=== PATIENT | male | born 1955 | race Caucasian/White ===

== ENCOUNTER → 2017-07-30 | Outpatient (CLI) | payer BC ==
[2017-07-30 14:49] LABS: EOS # 0.2 (0.04-0.40); EOS % 1.8 % (0.0-4.0); HEMATOCRIT 45.5 % (42.0-52.0); HEMOGLOBIN 14.5 g/dL (13.5-18.0); LYMPH# 2.1 (1.50-4.00); MEAN CELL VOLUME 88 fl (78-100); MEAN CORPUSCULAR HEMOGLOBIN 28 pg (27-31); MEAN CORPUSCULAR HGB CONC 32 g/dL (33-37); MEAN PLATELET VOLUME 10.1 fl (7.4-10.4); MONO # 1.1 (0.20-0.80); NEU # 6.6 (1.40-6.50); PLATELET COUNT 260 K/mm3 (130-400); RED BLOOD COUNT 5.19 M/mm3 (4.20-5.60); RED CELL DISTRIBUTION WIDTH 14.2 % (11.5-14.5); WHITE BLOOD COUNT 10.1 K/mm3 (4.8-10.8)
[2017-07-30 15:01] LABS: ALBUMIN 4.1 g/dL (3.5-5.0); BUN/CREATININE RATIO 22.8 (6.0-26.0); CALCIUM 9.1 mg/dL (8.4-10.2); POTASSIUM 4.2 mmol/L (3.6-5.0); TOTAL BILIRUBIN 0.4 mg/dL (0.2-1.3)
[2017-07-30 16:00] LABS: ERYTHROCYTE SEDIMENTATION RATE 3 mm/hr (0-20)
== END ==
LOC: RAD 14:09
PROVIDERS: Internal Medicine
DX: R06.02 Shortness of breath (principal)

== ENCOUNTER → 2017-08-29 | Outpatient (CLI) | payer BC ==
[2017-08-29 09:15] LABS: ALBUMIN 3.9 g/dL (3.5-5.0); BUN/CREATININE RATIO 33.5 (6.0-26.0); CALCIUM 8.6 mg/dL (8.4-10.2); POTASSIUM 4.5 mmol/L (3.6-5.0); TOTAL BILIRUBIN 0.5 mg/dL (0.2-1.3); TOTAL PROTEIN 6.5 g/dL (6.3-8.2)
== END ==
LOC: RAD 08:29
PROVIDERS: Internal Medicine
DX: Z01.818 Encounter for other preprocedural examination (principal); K44.9 Diaphragmatic hernia without obstruction or gangrene; J98.11 Atelectasis; E11.9 Type 2 diabetes mellitus without complications; I10 Essential (primary) hypertension
CPT/HCPCS: Q9967

== ENCOUNTER 2017-09-02 11:05 | Emergency (ER) | payer BC ==
[~2017-09-02] VITALS: Wt 105.9 kg
[2017-09-02] MEDS ORDERED: METOPROLOL SUCC25 M1 PO (11:14)
[2017-09-02] MEDS ORDERED: AMLODIPINE BESYL5 MG PO (11:14)
[2017-09-02] MEDS ORDERED: LISINOPRIL40 MG PO (11:14)
[2017-09-02] MEDS ORDERED: TORSEMIDE10 M1 PO (11:14)
[2017-09-02] MEDS ORDERED: IPRATROPIUM BROM3 M1 IH (11:14)
[2017-09-02] MEDS ORDERED: SYMBICORT1 AE3 IH (11:14)
[2017-09-02] MEDS ORDERED: DESYREL 100MG100 MG PO (11:14)
[2017-09-02] MEDS ORDERED: LEVITRA20 M1 PO (11:15)
[2017-09-02] MEDS ORDERED: ATORVASTATIN CA20 MG PO (11:15)
[2017-09-02 11:34] LABS: EOS % 0.1 % (0.0-4.0); HEMATOCRIT 41.3 % (42.0-52.0); HEMOGLOBIN 13.3 g/dL (13.5-18.0); LYMPH# 1.4 (1.50-4.00); MEAN CELL VOLUME 87 fl (78-100); MEAN CORPUSCULAR HEMOGLOBIN 28 pg (27-31); MEAN CORPUSCULAR HGB CONC 32 g/dL (33-37); MEAN PLATELET VOLUME 9.7 fl (7.4-10.4); MONO # 0.9 (0.20-0.80); NEU # 7.3 (1.40-6.50); PLATELET COUNT 191 K/mm3 (130-400); RED BLOOD COUNT 4.76 M/mm3 (4.20-5.60); RED CELL DISTRIBUTION WIDTH 15.1 % (11.5-14.5); WHITE BLOOD COUNT 9.8 K/mm3 (4.8-10.8)
[2017-09-02 11:47] LABS: ALBUMIN 3.7 g/dL (3.5-5.0); BUN/CREATININE RATIO 24.4 (6.0-26.0); CALCIUM 8.3 mg/dL (8.4-10.2); POTASSIUM 4.3 mmol/L (3.6-5.0); TOTAL BILIRUBIN 0.4 mg/dL (0.2-1.3); TOTAL PROTEIN 6.5 g/dL (6.3-8.2)
[2017-09-02 12:09] LABS: CKMB ISOENZYME 4.1 ng/mL (0.6-3.5); TROPONIN-I < 0.03 ng/mL (0.00-0.06)
[2017-09-02] MEDS ORDERED: PREDNISONE20 M1 (12:58)
[2017-09-02] MEDS ORDERED: LASIX20 M1 PO (13:07)
[2017-09-02 13:14] VITALS: BP 179/105
== END 2017-09-02 13:12 | disposition home or self-care (01) ==
LOC: ED 11:05
PROVIDERS: Nurse Practitioner Primary Care
DX: R06.02 Shortness of breath (principal); K44.9 Diaphragmatic hernia without obstruction or gangrene; I10 Essential (primary) hypertension; E78.5 Hyperlipidemia, unspecified; J45.909 Unspecified asthma, uncomplicated; T50.1X6A Underdosing of loop [high-ceiling] diuretics, initial encounter; Z91.14 Patient's other noncompliance with medication regimen

== ENCOUNTER 2017-09-15 16:40 | Observation (INO) | payer BC ==
[~2017-09-15] VITALS: Ht 165.1 cm; Wt 107.8 kg
[~2017-09-15 16:40] MED LIST: AMLODIPINE BESYL5 MG PO; ATORVASTATIN CA20 MG PO; DESYREL 100MG100 MG PO; IPRATROPIUM BROM3 M1 IH; LASIX20 M1 PO; LEVITRA20 M1 PO; LISINOPRIL40 MG PO; METOPROLOL SUCC25 M1 PO; PREDNISONE20 M1; SYMBICORT1 AE3 IH; TORSEMIDE10 M1 PO
[2017-09-15 17:28] LABS: HEMOGLOBIN 13.6 g/dL (13.5-18.0); MEAN CELL VOLUME 87 fl (78-100); MEAN CORPUSCULAR HEMOGLOBIN 28 pg (27-31); MEAN CORPUSCULAR HGB CONC 32 g/dL (33-37); MEAN PLATELET VOLUME 10.6 fl (7.4-10.4); PLATELET COUNT 238 K/mm3 (130-400); RED BLOOD COUNT 4.85 M/mm3 (4.20-5.60); RED CELL DISTRIBUTION WIDTH 15.3 % (11.5-14.5); WHITE BLOOD COUNT 8.4 K/mm3 (4.8-10.8)
[2017-09-15 17:38] LABS: BUN/CREATININE RATIO 30.6 (6.0-26.0); CALCIUM 9.1 mg/dL (8.4-10.2); POTASSIUM 4.5 mmol/L (3.6-5.0)
[2017-09-15 18:10] LABS: LYMPHOCYTE 21 % (20-51); MONOCYTE 12 % (3-10); NEUTROPHILS 65 % (42-75)
[2017-09-15 20:55] VITALS: BP 121/69
[2017-09-15] MEDS ORDERED: ATORVASTATIN CA40 MG PO (21:01)
--- NOTE | 2017-09-15 22:18 | NUR ---
Scheduled HS medications given. Refuses atorvastatin. States he takes it in the mornings. Dr. Alford aware. Did not bring own Duoneb from home. Used house medications.
[2017-09-15 23:16] VITALS: BP 106/59
[2017-09-16 03:15] VITALS: BP 97/67
[2017-09-16 06:24] VITALS: BP 107/72
--- NOTE | 2017-09-16 07:35 | NUR ---
Humberto Santos APRN at bedside.
[2017-09-16 09:14] LABS: ALBUMIN 3.8 g/dL (3.5-5.0); BUN/CREATININE RATIO 23.6 (6.0-26.0); CALCIUM 8.7 mg/dL (8.4-10.2); POTASSIUM 4.3 mmol/L (3.6-5.0); TOTAL BILIRUBIN 0.8 mg/dL (0.2-1.3); TOTAL PROTEIN 6.5 g/dL (6.3-8.2)
[2017-09-16 09:19] LABS: CKMB ISOENZYME 3.5 ng/mL (0.6-3.5)
[2017-09-16 09:23] LABS: TROPONIN-I 0.03 ng/mL (0.00-0.06)
[2017-09-16 09:30] LABS: EOS # 0.1 (0.04-0.40); EOS % 1.4 % (0.0-4.0); HEMATOCRIT 41.4 % (42.0-52.0); HEMOGLOBIN 13.3 g/dL (13.5-18.0); LYMPH# 1.8 (1.50-4.00); MEAN CELL VOLUME 87 fl (78-100); MEAN CORPUSCULAR HEMOGLOBIN 28 pg (27-31); MEAN CORPUSCULAR HGB CONC 32 g/dL (33-37); MEAN PLATELET VOLUME 10.6 fl (7.4-10.4); MONO # 0.9 (0.20-0.80); NEU # 4.8 (1.40-6.50); PLATELET COUNT 209 K/mm3 (130-400); RED BLOOD COUNT 4.77 M/mm3 (4.20-5.60); RED CELL DISTRIBUTION WIDTH 15.2 % (11.5-14.5); WHITE BLOOD COUNT 7.6 K/mm3 (4.8-10.8)
[2017-09-16 11:02] VITALS: BP 123/79
--- NOTE | 2017-09-16 11:41 | NUR ---
Report called to ETHAN Robledo at [facility]. ETHAN Robledo, aware of delay in transfer due to EMS availability. Will call back with patient departure time. Humberto Santos APRN updated patient and significant other. No questions at this time.
[2017-09-16 12:55] VITALS: BP 123/79
--- NOTE | 2017-09-16 13:20 | NUR ---
Patient alert and oriented. Denies pain. States headache has resolved. Continues to have shortness of breath at rest and with exertion. Transferred to [facility]. EMS arrives and report given. Cardizem drip infusing through IV to right forearm at 10mg/hr, with NS @ TKO. INT to left AC intact. Patient out of facility via stretcher. Patient becomes anxious immediately after being placed in EMS truck. States "guys, I can't do tight places, I'm claustrophobic." Patient begins panicking, and pulling on straps securing him to the stretcher. EMS crew removes patient from the truck. Patient remains on the stretcher. Verbal orders received from Humberto Santos APRN, to give 0.5mg ativan IV. Patient taken back to room 203 via stretcher. IV ativan administered. Patient appears less anxious after standing up from the stretcher. EMS calls different crew with larger truck from [place] to transport patient. Humberto Santos APRN is present and aware of delay. Patient's significant other also updated.
--- NOTE | 2017-09-16 13:32 | NUR ---
Larger EMS truck arrives, patient report given to crew. Patient remains alert and oriented, and denies pain. Out of facility via wheelchair to EMS. Ambulates to EMS truck. Steady gait noted. Cardizem drip infusing through IV to right forearm at 10mg/hour, and NS infusing @ TKO. INT to left AC. Patient belongings and home medications sent with EMS.
== END 2017-09-16 13:32 | disposition short-term general hospital (02) ==
LOC: ED 16:40 → MED/SURG 19:18
PROVIDERS: Nurse Practitioner Primary Care; ADMIT Family Medicine
DX: I48.91 Unspecified atrial fibrillation (principal); R06.00 Dyspnea, unspecified; I10 Essential (primary) hypertension; K44.9 Diaphragmatic hernia without obstruction or gangrene; E66.01 Morbid (severe) obesity due to excess calories; Z68.38 Body mass index [BMI] 38.0-38.9, adult; J45.909 Unspecified asthma, uncomplicated; Z79.01 Long term (current) use of anticoagulants; Z79.899 Other long term (current) drug therapy; Z98.1 Arthrodesis status
CPT/HCPCS: G0378; J2060; J3490; J7030

== ENCOUNTER 2017-11-07 19:14 | Emergency (ER) | payer BC ==
[~2017-11-07 19:14] MED LIST changes: +ATORVASTATIN CA40 MG PO
[2017-11-07 20:11] LABS: HEMOGLOBIN 14.2 g/dL (13.5-18.0); MEAN CELL VOLUME 87 fl (78-100); MEAN CORPUSCULAR HEMOGLOBIN 28 pg (27-31); MEAN CORPUSCULAR HGB CONC 32 g/dL (33-37); MEAN PLATELET VOLUME 10.4 fl (7.4-10.4); PLATELET COUNT 228 K/mm3 (130-400); RED BLOOD COUNT 5.07 M/mm3 (4.20-5.60); RED CELL DISTRIBUTION WIDTH 14.5 % (11.5-14.5); WHITE BLOOD COUNT 9.3 K/mm3 (4.8-10.8)
[2017-11-07 20:31] LABS: ALBUMIN 4.3 g/dL (3.5-5.0); CALCIUM 9.1 mg/dL (8.4-10.2); POTASSIUM 4.3 mmol/L (3.6-5.0); TOTAL BILIRUBIN 0.5 mg/dL (0.2-1.3)
[2017-11-07 20:32] LABS: URINE APPEARANCE CLEAR; URINE COLOR YELLOW
[2017-11-07 20:33] LABS: PH-URINE 5.5 (5.0 - 8.0); URINE BILIRUBIN NEGATIVE (NEGATIVE); URINE BLOOD NEGATIVE (NEGATIVE); URINE GLUCOSE NEGATIVE (NEGATIVE); URINE KETONE NEGATIVE (NEGATIVE); URINE LEUKOCYTE ESTERASE NEGATIVE (NEGATIVE); URINE NITRATE NEGATIVE (NEGATIVE); URINE PROTEIN(semi-quant) NEGATIVE (NEGATIVE); URINE UROBILINOGEN NORMAL (NORMAL); URINE WBC 0-1 /hpf (0-3)
[2017-11-07 20:38] LABS: TROPONIN-I < 0.03 ng/mL (0.00-0.06)
[2017-11-07 20:54] LABS: LYMPHOCYTE 24 % (20-51); MONOCYTE 12 % (3-10); NEUTROPHILS 61 % (42-75)
[2017-11-07] MEDS ORDERED: PREDNISONE20 M1 PO (21:23)
[2017-11-07] MEDS ORDERED: ZITHROMAX 250M250 MG PO (21:23)
[2017-11-07] MEDS ORDERED: CARDIZEM CD120 M1 PO (21:34)
[2017-11-07] MEDS ORDERED: ELIQUIS5 MG PO (21:34)
[2017-11-07] MEDS ORDERED: MULTAQ400 M1 PO (21:34)
[2017-11-07] MEDS ORDERED: TUSSIONEX PENN115 ML PO (21:41)
[2017-11-07] MEDS ORDERED: TESSALON PERLE100 M1 PO (21:41)
[2017-11-07 21:52] VITALS: BP 122/86
== END 2017-11-07 21:52 | disposition home or self-care (01) ==
LOC: ED 19:14
PROVIDERS: Nurse Practitioner Family
DX: J45.901 Unspecified asthma with (acute) exacerbation (principal); J20.9 Acute bronchitis, unspecified; I48.91 Unspecified atrial fibrillation; Z79.01 Long term (current) use of anticoagulants; I10 Essential (primary) hypertension; K44.9 Diaphragmatic hernia without obstruction or gangrene; Z79.899 Other long term (current) drug therapy
CPT/HCPCS: J2930

== ENCOUNTER → 2017-12-19 | Outpatient (CLI) | payer BC ==
[~2017-12-19] MED LIST changes: +CARDIZEM CD120 M1 PO; +ELIQUIS5 MG PO; +MULTAQ400 M1 PO; +PREDNISONE20 M1 PO; +TESSALON PERLE100 M1 PO; +TUSSIONEX PENN115 ML PO; +ZITHROMAX 250M250 MG PO
[2017-12-19 09:15] LABS: HEMATOCRIT 33.5 % (42.0-52.0); HEMOGLOBIN 10.1 g/dL (13.5-18.0); MEAN CELL VOLUME 89 fl (78-100); MEAN CORPUSCULAR HEMOGLOBIN 27 pg (27-31); MEAN CORPUSCULAR HGB CONC 30 g/dL (33-37); MEAN PLATELET VOLUME 9.2 fl (7.4-10.4); RED BLOOD COUNT 3.76 M/mm3 (4.20-5.60); WHITE BLOOD COUNT 6.7 K/mm3 (4.8-10.8)
[2017-12-19 09:17] LABS: ALBUMIN 3.8 g/dL (3.5-5.0); CALCIUM 9.1 mg/dL (8.4-10.2); POTASSIUM 4.4 mmol/L (3.6-5.0); TOTAL BILIRUBIN 0.4 mg/dL (0.2-1.3); TOTAL PROTEIN 6.5 g/dL (6.3-8.2)
[2017-12-19 09:26] LABS: PLATELET COUNT 514 K/mm3 (130-400)
[2017-12-19 09:27] LABS: LYMPHOCYTE 28 % (20-51); MONOCYTE 15 % (3-10); NEUTROPHILS 55 % (42-75); OVALOCYTES 1+
[2017-12-19 09:28] LABS: POLYCHROMASIA 1+
== END ==
LOC: LAB 08:34
PROVIDERS: Internal Medicine
DX: I48.91 Unspecified atrial fibrillation (principal); I10 Essential (primary) hypertension

== ENCOUNTER → 2017-12-31 | Outpatient (CLI) | payer BC ==
[2017-12-31 11:07] LABS: HEMATOCRIT 38.7 % (42.0-52.0); HEMOGLOBIN 11.7 g/dL (13.5-18.0); MEAN CELL VOLUME 87 fl (78-100); MEAN CORPUSCULAR HEMOGLOBIN 26 pg (27-31); MEAN CORPUSCULAR HGB CONC 30 g/dL (33-37); MEAN PLATELET VOLUME 10.1 fl (7.4-10.4); PLATELET COUNT 296 K/mm3 (130-400); RED BLOOD COUNT 4.47 M/mm3 (4.20-5.60); RED CELL DISTRIBUTION WIDTH 15.2 % (11.5-14.5); WHITE BLOOD COUNT 8.3 K/mm3 (4.8-10.8)
[2017-12-31 11:14] LABS: ALBUMIN 4.1 g/dL (3.5-5.0); CALCIUM 9.4 mg/dL (8.4-10.2); POTASSIUM 4.8 mmol/L (3.6-5.0); TOTAL BILIRUBIN 0.6 mg/dL (0.2-1.3); TOTAL PROTEIN 6.7 g/dL (6.3-8.2)
[2017-12-31 11:36] LABS: LYMPHOCYTE 20 % (20-51); MONOCYTE 11 % (3-10); NEUTROPHILS 65 % (42-75)
== END ==
LOC: LAB 10:28
PROVIDERS: Internal Medicine
DX: I48.91 Unspecified atrial fibrillation (principal); I10 Essential (primary) hypertension

== ENCOUNTER → 2018-01-13 | Outpatient (CLI) | payer BC | LOC: RAD 10:39 | DX: M79.662 Pain in left lower leg (principal); M79.661 Pain in right lower leg; R60.0 Localized edema ==

== ENCOUNTER → 2018-02-26 | Outpatient (CLI) | payer BC | LOC: RAD 10:01 | DX: M19.031 Primary osteoarthritis, right wrist (principal) ==

== ENCOUNTER → 2018-04-22 | Outpatient (CLI) | payer BC | LOC: RAD 12:56 | DX: M19.072 Primary osteoarthritis, left ankle and foot (principal) ==

== ENCOUNTER → 2018-04-29 | Outpatient (CLI) | payer BC | LOC: LAB 15:15 | DX: E11.9 Type 2 diabetes mellitus without complications (principal); M79.675 Pain in left toe(s) ==

== ENCOUNTER → 2018-05-01 | Outpatient (CLI) | payer BC | LOC: CARDREHAB 13:35 | DX: G47.33 Obstructive sleep apnea (adult) (pediatric) (principal) | CPT/HCPCS: G0399 ==

== ENCOUNTER → 2019-03-19 | Outpatient (CLI) | payer BC ==
[2019-03-19 11:47] LABS: HEMOGLOBIN 14.3 g/dL (13.5-18.0); MEAN CELL VOLUME 83 fl (78-100); MEAN CORPUSCULAR HEMOGLOBIN 26 pg (27-31); MEAN CORPUSCULAR HGB CONC 32 g/dL (33-37); MEAN PLATELET VOLUME 10.5 fl (7.4-10.4); PLATELET COUNT 234 K/mm3 (130-400); RED BLOOD COUNT 5.43 M/mm3 (4.20-5.60); RED CELL DISTRIBUTION WIDTH 14.7 % (11.5-14.5); WHITE BLOOD COUNT 7.7 K/mm3 (4.8-10.8)
[2019-03-19 11:57] LABS: ALBUMIN 4.3 g/dL (3.4-4.8); POTASSIUM 4.7 mmol/L (3.5-5.1)
[2019-03-19 11:58] LABS: CALCIUM 9.4 mg/dL (8.3-10.5)
[2019-03-19 12:00] LABS: TOTAL PROTEIN 7.1 g/dL (6.2-8.1)
[2019-03-19 12:01] LABS: TOTAL BILIRUBIN 0.4 mg/dL (0.2-1.2)
[2019-03-19 12:05] LABS: BAND 1 % (0-10); LYMPHOCYTE 19 % (20-51); MONOCYTE 8 % (3-10); NEUTROPHILS 61 % (42-75)
[2019-03-19 12:15] LABS: PH-URINE 5.5 (5.0 - 8.0); URINE APPEARANCE CLEAR; URINE BILIRUBIN NEGATIVE (NEGATIVE); URINE BLOOD NEGATIVE (NEGATIVE); URINE COLOR YELLOW; URINE GLUCOSE NEGATIVE (NEGATIVE); URINE KETONE NEGATIVE (NEGATIVE); URINE LEUKOCYTE ESTERASE NEGATIVE (NEGATIVE); URINE NITRATE NEGATIVE (NEGATIVE); URINE PROTEIN(semi-quant) NEGATIVE (NEGATIVE); URINE UROBILINOGEN NORMAL (NORMAL)
== END ==
LOC: RAD 11:24
PROVIDERS: Family Medicine
DX: R10.11 Right upper quadrant pain (principal); R61 Generalized hyperhidrosis

== ENCOUNTER 2019-03-29 11:35 | Emergency (ER) | payer BC ==
[~2019-03-29] VITALS: Wt 119.6 kg
[~2019-03-29 11:35] MED LIST changes: -ATORVASTATIN CA40 MG PO
[2019-03-29 12:17] LABS: HEMATOCRIT 43.5 % (42.0-52.0); HEMOGLOBIN 13.7 g/dL (13.5-18.0); MEAN CELL VOLUME 84 fl (78-100); MEAN CORPUSCULAR HEMOGLOBIN 26 pg (27-31); MEAN CORPUSCULAR HGB CONC 32 g/dL (33-37); MEAN PLATELET VOLUME 10.6 fl (7.4-10.4); PLATELET COUNT 217 K/mm3 (130-400); RED BLOOD COUNT 5.21 M/mm3 (4.20-5.60); RED CELL DISTRIBUTION WIDTH 14.8 % (11.5-14.5); WHITE BLOOD COUNT 5.7 K/mm3 (4.8-10.8)
[2019-03-29 12:27] LABS: LYMPHOCYTE 25 % (20-51); MONOCYTE 18 % (3-10); NEUTROPHILS 54 % (42-75); POTASSIUM 4.7 mmol/L (3.5-5.1)
[2019-03-29 12:28] LABS: CALCIUM 9.1 mg/dL (8.3-10.5)
[2019-03-29 12:29] LABS: TOTAL PROTEIN 6.5 g/dL (6.2-8.1)
[2019-03-29 12:31] LABS: TOTAL BILIRUBIN 0.3 mg/dL (0.2-1.2)
[2019-03-29] MEDS ORDERED: IPRATROPIUM BROM3 M1 IH (13:26)
[2019-03-29] MEDS ORDERED: PREDNISONE20 M1 PO (13:26)
[2019-03-29] MEDS ORDERED: VIBRAMYCIN HYC100 MG PO (13:26)
[2019-03-29] MEDS ORDERED: GUAIFEN-CODEINE5 ML PO (13:26)
[2019-03-29 13:44] VITALS: BP 127/69
[2019-03-29] MEDS ORDERED: FUROSEMIDE20 MG PO (15:15)
[2019-03-29] MEDS ORDERED: MULTAQ400 M1 PO (15:17)
== END 2019-03-29 13:46 | disposition home or self-care (01) ==
LOC: ED 11:35
PROVIDERS: Family Medicine
DX: J44.1 Chronic obstructive pulmonary disease with (acute) exacerbation (principal); I10 Essential (primary) hypertension; E78.5 Hyperlipidemia, unspecified; G47.30 Sleep apnea, unspecified; E66.01 Morbid (severe) obesity due to excess calories; Z87.891 Personal history of nicotine dependence

== ENCOUNTER → 2019-04-02 | Outpatient (CLI) | payer BC ==
[2019-03-29 13:44] VITALS: BP 127/69
[~2019-04-02] MED LIST changes: +FUROSEMIDE20 MG PO; +GUAIFEN-CODEINE5 ML PO; +VIBRAMYCIN HYC100 MG PO
[2019-04-02 12:44] LABS: BASO # 0.1 (0.02-0.10); EOS # 0.2 (0.04-0.40); EOS % 2.3 % (0.0-4.0); HEMATOCRIT 44.3 % (42.0-52.0); HEMOGLOBIN 13.9 g/dL (13.5-18.0); MEAN CELL VOLUME 83 fl (78-100); MEAN CORPUSCULAR HEMOGLOBIN 26 pg (27-31); MEAN CORPUSCULAR HGB CONC 31 g/dL (33-37); MEAN PLATELET VOLUME 10.4 fl (7.4-10.4); MONO # 0.9 (0.20-0.80); NEU # 5.2 (1.40-6.50); PLATELET COUNT 250 K/mm3 (130-400); RED BLOOD COUNT 5.33 M/mm3 (4.20-5.60); RED CELL DISTRIBUTION WIDTH 14.9 % (11.5-14.5); WHITE BLOOD COUNT 8.4 K/mm3 (4.8-10.8)
[2019-04-02 12:53] LABS: ALBUMIN 4.2 g/dL (3.4-4.8); POTASSIUM 4.5 mmol/L (3.5-5.1)
[2019-04-02 12:54] LABS: CALCIUM 9.5 mg/dL (8.3-10.5)
[2019-04-02 12:56] LABS: PROTHROMBIN TIME 10.4 SECONDS (9.0-12.0); TOTAL PROTEIN 6.7 g/dL (6.2-8.1)
[2019-04-02 12:57] LABS: TOTAL BILIRUBIN 0.4 mg/dL (0.2-1.2)
[2019-04-02 13:02] LABS: MAGNESIUM 1.8 mg/dL (1.60-2.60)
[2019-04-02 13:18] LABS: URINE APPEARANCE CLEAR; URINE COLOR YELLOW
[2019-04-02 13:19] LABS: URINE BILIRUBIN NEGATIVE (NEGATIVE); URINE BLOOD NEGATIVE (NEGATIVE); URINE GLUCOSE NEGATIVE (NEGATIVE); URINE KETONE NEGATIVE (NEGATIVE); URINE LEUKOCYTE ESTERASE NEGATIVE (NEGATIVE); URINE NITRATE NEGATIVE (NEGATIVE); URINE PROTEIN(semi-quant) TRACE mg/dL (NEGATIVE); URINE UROBILINOGEN NORMAL (NORMAL)
== END ==
LOC: LAB 12:27
PROVIDERS: Internal Medicine
DX: Z01.818 Encounter for other preprocedural examination (principal); K81.1 Chronic cholecystitis

== ENCOUNTER → 2019-04-03 | Outpatient (CLI) | payer BC ==
[2019-03-29 13:44] VITALS: BP 127/69
== END ==
LOC: CARDREHAB 07:59 → AMSURD 10:28
DX: Z01.818 Encounter for other preprocedural examination (principal); K81.1 Chronic cholecystitis
CPT/HCPCS: A9500

== ENCOUNTER 2019-06-04 15:18 | Emergency (ER) | payer BC ==
[~2019-06-04] VITALS: Wt 118.2 kg
[2019-06-04 16:47] LABS: HEMATOCRIT 39.8 % (42.0-52.0); HEMOGLOBIN 12.5 g/dL (13.5-18.0); MEAN CELL VOLUME 86 fl (78-100); MEAN CORPUSCULAR HEMOGLOBIN 27 pg (27-31); MEAN CORPUSCULAR HGB CONC 31 g/dL (33-37); MEAN PLATELET VOLUME 10.3 fl (7.4-10.4); PLATELET COUNT 197 K/mm3 (130-400); RED BLOOD COUNT 4.64 M/mm3 (4.20-5.60); RED CELL DISTRIBUTION WIDTH 15.7 % (11.5-14.5)
[2019-06-04 16:55] LABS: ALBUMIN 3.9 g/dL (3.4-4.8); POTASSIUM 4.1 mmol/L (3.5-5.1); SODIUM 138 mmol/L (136-145)
[2019-06-04 16:56] LABS: CALCIUM 8.5 mg/dL (8.3-10.5)
[2019-06-04 16:57] LABS: GLUCOSE 104 mg/dL (75-110); TOTAL PROTEIN 6.2 g/dL (6.2-8.1)
[2019-06-04 16:58] LABS: CARBON DIOXIDE 21 mmol/L (23-31)
[2019-06-04 16:59] LABS: TOTAL BILIRUBIN 0.3 mg/dL (0.2-1.2)
[2019-06-04 17:03] LABS: AST-SGOT 37 U/L (5-34)
[2019-06-04 17:04] LABS: ALT/SGPT 160 U/L (0-55)
[2019-06-04 17:09] LABS: D-DIMER 0.46 mg/L FEU (0.15-0.50)
[2019-06-04 17:25] LABS: LYMPHOCYTE 17 % (20-51); MONOCYTE 6 % (3-10); NEUTROPHILS 75 % (42-75)
[2019-06-04 17:33] LABS: TROPONIN-I < 0.03 ng/mL (<0.030)
[2019-06-04] MEDS ORDERED: ZITHROMAX 250M250 MG PO (19:22)
[2019-06-04] MEDS ORDERED: PREDNISONE20 MG PO (19:22)
[2019-06-04] MEDS ORDERED: IPRATROPIUM BROM3 M1 IH (19:29)
[2019-06-04 19:44] VITALS: BP 160/95
== END 2019-06-04 19:58 | disposition home or self-care (01) ==
LOC: ED 15:18
PROVIDERS: Nurse Practitioner Family
DX: J20.9 Acute bronchitis, unspecified (principal); I48.91 Unspecified atrial fibrillation; E11.9 Type 2 diabetes mellitus without complications; I11.0 Hypertensive heart disease with heart failure; I50.9 Heart failure, unspecified; J45.909 Unspecified asthma, uncomplicated; E78.5 Hyperlipidemia, unspecified; G47.33 Obstructive sleep apnea (adult) (pediatric); M54.9 Dorsalgia, unspecified; G89.29 Other chronic pain; Z79.01 Long term (current) use of anticoagulants; Z87.891 Personal history of nicotine dependence
CPT/HCPCS: J2930; J7030

== ENCOUNTER → 2019-12-28 | Outpatient (CLI) | payer BC ==
[~2019-12-28] MED LIST changes: +PREDNISONE20 MG PO
[2019-12-28 15:17] LABS: POTASSIUM 4.2 mmol/L (3.5-5.1)
[2019-12-28 15:18] LABS: CALCIUM 9.3 mg/dL (8.3-10.5)
== END ==
LOC: LAB 14:49
PROVIDERS: Internal Medicine
DX: N40.0 Benign prostatic hyperplasia without lower urinary tract symptoms (principal); Z98.890 Other specified postprocedural states
CPT/HCPCS: Q9967

== ENCOUNTER → 2020-01-11 | Day surgery (SDC) | payer MEDICARE, BC | LOC: MSO 10:36 | DX: L82.1 Other seborrheic keratosis (principal); Z79.01 Long term (current) use of anticoagulants ==

== ENCOUNTER → 2020-01-25 | Outpatient (CLI) | payer MEDICARE, BC ==
[2020-01-25 12:10] LABS: ALBUMIN 4.4 g/dL (3.4-4.8)
[2020-01-25 12:11] LABS: POTASSIUM 4.4 mmol/L (3.5-5.1)
[2020-01-25 12:12] LABS: CALCIUM 9.5 mg/dL (8.3-10.5)
[2020-01-25 12:13] LABS: TOTAL PROTEIN 7.3 g/dL (6.2-8.1)
[2020-01-25 12:15] LABS: TOTAL BILIRUBIN 0.5 mg/dL (0.2-1.2)
[2020-01-25 12:19] LABS: MAGNESIUM 2.15 mg/dL (1.60-2.60)
[2020-01-25 12:40] LABS: URINE APPEARANCE CLEAR; URINE COLOR YELLOW
[2020-01-25 12:41] LABS: PH-URINE 7.5 (5.0 - 8.0); URINE BILIRUBIN NEGATIVE (NEGATIVE); URINE BLOOD NEGATIVE (NEGATIVE); URINE GLUCOSE NEGATIVE (NEGATIVE); URINE KETONE NEGATIVE (NEGATIVE); URINE LEUKOCYTE ESTERASE NEGATIVE (NEGATIVE); URINE MUCUS PRESENT (NOT PRESENT); URINE NITRATE NEGATIVE (NEGATIVE); URINE PROTEIN(semi-quant) TRACE mg/dL (NEGATIVE); URINE UROBILINOGEN NORMAL (NORMAL); URINE WBC 0-1 /hpf (0-3)
== END ==
LOC: LAB 11:32
PROVIDERS: Internal Medicine
DX: Z00.00 Encounter for general adult medical examination without abnormal findings (principal); Z12.5 Encounter for screening for malignant neoplasm of prostate; Z12.11 Encounter for screening for malignant neoplasm of colon

== ENCOUNTER → 2020-05-19 | Outpatient (CLI) | payer MEDICARE ==
[~2020-05-19] MED LIST changes: +ALBUTEROL2.5 MG/3 M IH; +LEVOFLOXACIN750 MG PO
== END ==
LOC: LAB 15:24
DX: Z20.822 Contact with and (suspected) exposure to COVID-19 (principal)

== ENCOUNTER → 2020-06-13 | Outpatient (CLI) | payer MEDICARE | LOC: RAD 09:33 | DX: M17.12 Unilateral primary osteoarthritis, left knee (principal); S89.92XA Unspecified injury of left lower leg, initial encounter ==

== ENCOUNTER → 2020-07-26 | Outpatient (CLI) | payer MEDICARE ==
[2020-07-26 11:25] LABS: BASO # 0.05 (0.02-0.10); EOS # 0.26 (0.04-0.40); HEMOGLOBIN 14.6 g/dL (13.5-18.0); LYMPH# 1.93 (1.50-4.00); MEAN CELL VOLUME 83 fl (78-100); MEAN CORPUSCULAR HEMOGLOBIN 26 pg (27-31); MEAN CORPUSCULAR HGB CONC 32 g/dL (33-37); MEAN PLATELET VOLUME 9.9 fl (7.4-10.4); MONO # 0.86 (0.20-0.80); NEU # 5.42 (1.40-6.50); PLATELET COUNT 253 K/mm3 (130-400); RED BLOOD COUNT 5.53 M/mm3 (4.20-5.60); RED CELL DISTRIBUTION WIDTH 14.8 % (11.5-14.5); WHITE BLOOD COUNT 8.6 K/mm3 (4.8-10.8)
[2020-07-26 11:51] LABS: ALBUMIN 4.4 g/dL (3.4-4.8); POTASSIUM 4.6 mmol/L (3.5-5.1)
[2020-07-26 11:52] LABS: CALCIUM 9.2 mg/dL (8.3-10.5); PROTHROMBIN TIME 9.6 SECONDS (9.0-12.0)
[2020-07-26 11:55] LABS: TOTAL BILIRUBIN 0.4 mg/dL (0.2-1.2)
[2020-07-26 11:57] LABS: URINE APPEARANCE CLEAR; URINE BILIRUBIN NEGATIVE (NEGATIVE); URINE BLOOD NEGATIVE (NEGATIVE); URINE COLOR YELLOW; URINE GLUCOSE NEGATIVE (NEGATIVE); URINE KETONE NEGATIVE (NEGATIVE); URINE LEUKOCYTE ESTERASE NEGATIVE (NEGATIVE); URINE NITRATE NEGATIVE (NEGATIVE); URINE PROTEIN(semi-quant) NEGATIVE (NEGATIVE); URINE UROBILINOGEN NORMAL (NORMAL); URINE WBC 0-1 /hpf (0-3)
[2020-07-26 12:00] LABS: MAGNESIUM 1.99 mg/dL (1.60-2.60)
== END ==
LOC: AMSURD 11:10
PROVIDERS: Internal Medicine
DX: Z01.818 Encounter for other preprocedural examination (principal); Z98.1 Arthrodesis status

== ENCOUNTER → 2020-08-16 | Outpatient (CLI) | payer MEDICARE | LOC: RAD 14:59 | DX: M25.562 Pain in left knee (principal) ==

== ENCOUNTER 2020-09-06 09:07 | Outpatient (RCR) | payer OTHER ==
[~2020-09-06 09:07] MED LIST changes: -ALBUTEROL2.5 MG/3 M IH; -LEVOFLOXACIN750 MG PO
== END 2020-09-07 15:37 | disposition still patient (30) ==
LOC: OPPGERO 09:07
DX: F33.1 Major depressive disorder, recurrent, moderate (principal); F41.1 Generalized anxiety disorder; G47.33 Obstructive sleep apnea (adult) (pediatric); I10 Essential (primary) hypertension; J45.909 Unspecified asthma, uncomplicated; E66.9 Obesity, unspecified; F10.20 Alcohol dependence, uncomplicated; I48.91 Unspecified atrial fibrillation; F90.9 Attention-deficit hyperactivity disorder, unspecified type; Z96.652 Presence of left artificial knee joint; Z98.890 Other specified postprocedural states; Z98.1 Arthrodesis status; Z63.5 Disruption of family by separation and divorce; Z83.3 Family history of diabetes mellitus

== ENCOUNTER 2020-09-08 09:58 | Outpatient (RCR) | payer MEDICARE, OTHER | END 2020-10-07 22:30 | LOC: OPPGERO 09:58 | DX: F41.8 Other specified anxiety disorders (principal); I10 Essential (primary) hypertension; G47.33 Obstructive sleep apnea (adult) (pediatric); J45.909 Unspecified asthma, uncomplicated; E66.9 Obesity, unspecified; I48.91 Unspecified atrial fibrillation; F90.9 Attention-deficit hyperactivity disorder, unspecified type; Z79.899 Other long term (current) drug therapy ==

== ENCOUNTER → 2021-01-23 | Outpatient (CLI) | payer MEDICARE ==
[~2021-01-23] MED LIST changes: +ALBUTEROL2.5 MG/3 M IH; +LEVOFLOXACIN750 MG PO
[2021-01-23 14:42] LABS: BASO # 0.03 K/mm3 (0.02-0.10); EOS # 0.18 K/mm3 (0.04-0.40); EOS % 1.8 % (0.0-4.0); HEMATOCRIT 45.2 % (42.0-52.0); HEMOGLOBIN 14.4 g/dL (13.5-18.0); LYMPH# 1.94 K/mm3 (1.50-4.00); MEAN CELL VOLUME 85 fl (78-100); MEAN CORPUSCULAR HEMOGLOBIN 27 pg (27-31); MEAN CORPUSCULAR HGB CONC 32 g/dL (33-37); MEAN PLATELET VOLUME 9.8 fl (7.4-10.4); MONO # 1.04 K/mm3 (0.20-0.80); NEU # 6.83 K/mm3 (1.40-6.50); PLATELET COUNT 244 K/mm3 (130-400); RED BLOOD COUNT 5.35 M/mm3 (4.20-5.60); RED CELL DISTRIBUTION WIDTH 14.5 % (11.5-14.5); WHITE BLOOD COUNT 10.2 K/mm3 (4.8-10.8)
[2021-01-23 14:52] LABS: ALBUMIN 4.1 g/dL (3.4-4.8); POTASSIUM 4.1 mmol/L (3.5-5.1)
[2021-01-23 14:53] LABS: CALCIUM 9.1 mg/dL (8.3-10.5)
[2021-01-23 14:54] LABS: TOTAL PROTEIN 6.9 g/dL (6.2-8.1)
[2021-01-23 14:56] LABS: TOTAL BILIRUBIN 0.4 mg/dL (0.2-1.2)
[2021-01-23 15:00] LABS: D-DIMER 0.95 mg/L FEU (0.15-0.50)
== END ==
LOC: RAD 14:22
PROVIDERS: Nurse Practitioner
DX: R06.00 Dyspnea, unspecified (principal)

== ENCOUNTER → 2021-01-23 | Outpatient (CLI) | payer MEDICARE | LOC: LAB 15:44 | DX: R06.00 Dyspnea, unspecified (principal); R04.2 Hemoptysis; Z20.822 Contact with and (suspected) exposure to COVID-19 ==

== ENCOUNTER 2021-01-24 08:40 | Emergency (ER) | payer MEDICARE ==
[~2021-01-24] VITALS: Ht 165.1 cm; Wt 118.2 kg
[~2021-01-24 08:40] MED LIST changes: -ALBUTEROL2.5 MG/3 M IH; -LEVOFLOXACIN750 MG PO
[2021-01-24] MEDS ORDERED: VIBRAMYCIN HYC100 MG PO (08:55)
[2021-01-24] MEDS ORDERED: PREDNISONE20 M1 PO (08:56)
[2021-01-24] MEDS ORDERED: LEVOFLOXACIN750 MG PO (10:41)
[2021-01-24] MEDS ORDERED: ALBUTEROL2.5 MG/3 M IH (10:41)
[2021-01-24 10:56] VITALS: BP 143/82
== END 2021-01-24 10:56 | disposition home or self-care (01) ==
LOC: ED 08:40
DX: J18.9 Pneumonia, unspecified organism (principal); J45.909 Unspecified asthma, uncomplicated; I48.91 Unspecified atrial fibrillation; E66.9 Obesity, unspecified; Z79.01 Long term (current) use of anticoagulants; Z79.52 Long term (current) use of systemic steroids; Z68.41 Body mass index [BMI] 40.0-44.9, adult
CPT/HCPCS: J2060; Q9967

== ENCOUNTER → 2021-08-10 | Outpatient (CLI) | payer MEDICARE ==
[~2021-08-10] MED LIST changes: +ALBUTEROL2.5 MG/3 M IH; +LEVOFLOXACIN750 MG PO
[2021-08-10 14:40] LABS: BASO # 0.04 K/mm3 (0.02-0.10); EOS # 0.13 K/mm3 (0.04-0.40); HEMATOCRIT 41.7 % (42.0-52.0); HEMOGLOBIN 13.5 g/dL (13.5-18.0); LYMPH# 1.47 K/mm3 (1.50-4.00); MEAN CELL VOLUME 83 fl (78-100); MEAN CORPUSCULAR HEMOGLOBIN 27 pg (27-31); MEAN CORPUSCULAR HGB CONC 32 g/dL (33-37); MEAN PLATELET VOLUME 10.1 fl (7.4-10.4); MONO # 1.24 K/mm3 (0.20-0.80); NEU # 9.45 K/mm3 (1.40-6.50); PLATELET COUNT 204 K/mm3 (130-400); RED BLOOD COUNT 5.05 M/mm3 (4.20-5.60); RED CELL DISTRIBUTION WIDTH 14.4 % (11.5-14.5); WHITE BLOOD COUNT 12.4 K/mm3 (4.8-10.8)
[2021-08-10 14:51] LABS: ALBUMIN 4.1 g/dL (3.4-4.8); POTASSIUM 4.5 mmol/L (3.5-5.1)
[2021-08-10 14:52] LABS: CALCIUM 9.3 mg/dL (8.3-10.5)
[2021-08-10 14:53] LABS: TOTAL PROTEIN 6.8 g/dL (6.2-8.1)
[2021-08-10 14:55] LABS: TOTAL BILIRUBIN 0.4 mg/dL (0.2-1.2)
[2021-08-10 14:58] LABS: PROTHROMBIN TIME 10.1 SECONDS (9.0-12.0)
[2021-08-10 15:00] LABS: MAGNESIUM 1.83 mg/dL (1.60-2.60)
[2021-08-10 17:47] LABS: PH-URINE 5.5 (5.0 - 8.0); URINE APPEARANCE CLEAR; URINE BILIRUBIN NEGATIVE (NEGATIVE); URINE BLOOD NEGATIVE (NEGATIVE); URINE COLOR YELLOW; URINE KETONE NEGATIVE (NEGATIVE); URINE LEUKOCYTE ESTERASE NEGATIVE (NEGATIVE); URINE NITRATE NEGATIVE (NEGATIVE); URINE PROTEIN(semi-quant) TRACE (NEGATIVE); URINE UROBILINOGEN NORMAL (NORMAL)
== END ==
LOC: RAD 14:23 → LAB 14:23
PROVIDERS: Internal Medicine
DX: Z01.818 Encounter for other preprocedural examination (principal); Z12.5 Encounter for screening for malignant neoplasm of prostate; E78.2 Mixed hyperlipidemia; M17.9 Osteoarthritis of knee, unspecified; R73.03 Prediabetes

== ENCOUNTER → 2021-09-07 | Outpatient (CLI) | payer MEDICARE ==
[2021-09-07 16:04] LABS: ALBUMIN 4.2 g/dL (3.4-4.8); POTASSIUM 4.4 mmol/L (3.5-5.1)
[2021-09-07 16:09] LABS: TOTAL BILIRUBIN 0.4 mg/dL (0.2-1.2)
[2021-09-07 16:14] LABS: CALCIUM 9.8 mg/dL (8.3-10.5)
== END ==
LOC: LAB 15:32
PROVIDERS: Internal Medicine
DX: E11.9 Type 2 diabetes mellitus without complications (principal)

== ENCOUNTER → 2021-11-02 | Outpatient (CLI) | payer MEDICARE ==
[2021-11-02 09:30] LABS: BASO # 0.04 K/mm3 (0.02-0.10); EOS # 0.29 K/mm3 (0.04-0.40); EOS % 3.6 % (0.0-4.0); HEMATOCRIT 41.3 % (42.0-52.0); LYMPH# 1.92 K/mm3 (1.50-4.00); MEAN CELL VOLUME 82 fl (78-100); MEAN CORPUSCULAR HEMOGLOBIN 26 pg (27-31); MEAN CORPUSCULAR HGB CONC 32 g/dL (33-37); MEAN PLATELET VOLUME 9.3 fl (7.4-10.4); MONO # 0.84 K/mm3 (0.20-0.80); NEU # 4.85 K/mm3 (1.40-6.50); PLATELET COUNT 229 K/mm3 (130-400); RED BLOOD COUNT 5.07 M/mm3 (4.20-5.60); RED CELL DISTRIBUTION WIDTH 15.1 % (11.5-14.5); WHITE BLOOD COUNT 8.1 K/mm3 (4.8-10.8)
[2021-11-02 09:34] LABS: ALBUMIN 4.2 g/dL (3.4-4.8); POTASSIUM 4.4 mmol/L (3.5-5.1)
[2021-11-02 09:35] LABS: CALCIUM 9.1 mg/dL (8.3-10.5)
[2021-11-02 09:37] LABS: TOTAL PROTEIN 6.9 g/dL (6.2-8.1)
[2021-11-02 09:38] LABS: TOTAL BILIRUBIN 0.3 mg/dL (0.2-1.2)
== END ==
LOC: LAB 09:14
PROVIDERS: Internal Medicine
DX: E11.9 Type 2 diabetes mellitus without complications (principal)

== ENCOUNTER → 2022-02-08 | Outpatient (CLI) | payer MEDICARE ==
[2022-02-08 17:12] LABS: URINE WBC 0 /hpf (0-3)
[2022-02-08 17:36] LABS: BASO # 0.03 K/mm3 (0.02-0.10); EOS # 0.17 K/mm3 (0.04-0.40); EOS % 1.6 % (0.0-4.0); HEMATOCRIT 39.8 % (42.0-52.0); HEMOGLOBIN 12.5 g/dL (13.5-18.0); LYMPH# 1.87 K/mm3 (1.50-4.00); MEAN CELL VOLUME 80 fl (78-100); MEAN CORPUSCULAR HEMOGLOBIN 25 pg (27-31); MEAN CORPUSCULAR HGB CONC 31 g/dL (33-37); MONO # 1.04 K/mm3 (0.20-0.80); PLATELET COUNT 236 K/mm3 (130-400); WHITE BLOOD COUNT 10.9 K/mm3 (4.8-10.8)
[2022-02-08 17:40] LABS: ALBUMIN 4.1 g/dL (3.4-4.8); POTASSIUM 4.1 mmol/L (3.5-5.1)
[2022-02-08 17:41] LABS: CALCIUM 9.1 mg/dL (8.3-10.5)
[2022-02-08 17:42] LABS: TOTAL PROTEIN 6.7 g/dL (6.2-8.1)
[2022-02-08 17:44] LABS: TOTAL BILIRUBIN 0.4 mg/dL (0.2-1.2)
[2022-02-08 17:49] LABS: MAGNESIUM 1.67 mg/dL (1.60-2.60)
[2022-02-08 17:51] LABS: PROTHROMBIN TIME 10.4 SECONDS (9.0-12.0)
[2022-02-08 18:30] LABS: URINE APPEARANCE CLEAR; URINE COLOR YELLOW; URINE GLUCOSE NEGATIVE (NEGATIVE); URINE KETONE TRACE (NEGATIVE); URINE PROTEIN(semi-quant) NEGATIVE (NEGATIVE)
[2022-02-08 18:31] LABS: URINE BILIRUBIN NEGATIVE (NEGATIVE); URINE BLOOD NEGATIVE (NEGATIVE); URINE LEUKOCYTE ESTERASE NEGATIVE (NEGATIVE); URINE NITRATE NEGATIVE (NEGATIVE); URINE UROBILINOGEN NORMAL (NORMAL)
== END ==
LOC: RAD 16:29 → LAB 16:29
PROVIDERS: Internal Medicine
DX: Z01.818 Encounter for other preprocedural examination (principal)

== ENCOUNTER → 2022-04-09 | Outpatient (CLI) | payer MEDICARE ==
[~2022-04-09] MED LIST changes: +COLACE CLEAR50 MG PO; +NORCO 325 MG-51 TA1 PO
[2022-04-09 11:52] LABS: BASO # 0.02 K/mm3 (0.02-0.10); EOS # 0.18 K/mm3 (0.04-0.40); HEMATOCRIT 44.9 % (42.0-52.0); HEMOGLOBIN 14.2 g/dL (13.5-18.0); MEAN CELL VOLUME 80 fl (78-100); MEAN CORPUSCULAR HEMOGLOBIN 25 pg (27-31); MEAN CORPUSCULAR HGB CONC 32 g/dL (33-37); MEAN PLATELET VOLUME 9.5 fl (7.4-10.4); MONO # 0.93 K/mm3 (0.20-0.80); NEU # 5.87 K/mm3 (1.40-6.50); PLATELET COUNT 296 K/mm3 (130-400); RED BLOOD COUNT 5.64 M/mm3 (4.20-5.60); RED CELL DISTRIBUTION WIDTH 16.5 % (11.5-14.5); WHITE BLOOD COUNT 9.2 K/mm3 (4.8-10.8)
[2022-04-09 11:57] LABS: ALBUMIN 4.5 g/dL (3.4-4.8)
[2022-04-09 11:58] LABS: POTASSIUM 4.6 mmol/L (3.5-5.1)
[2022-04-09 11:59] LABS: CALCIUM 9.6 mg/dL (8.3-10.5)
[2022-04-09 12:00] LABS: TOTAL PROTEIN 7.3 g/dL (6.2-8.1)
[2022-04-09 12:02] LABS: TOTAL BILIRUBIN 0.4 mg/dL (0.2-1.2)
[2022-04-09 12:07] LABS: MAGNESIUM 1.81 mg/dL (1.60-2.60)
== END ==
LOC: LAB 11:39
PROVIDERS: Internal Medicine
DX: I48.91 Unspecified atrial fibrillation (principal); N40.0 Benign prostatic hyperplasia without lower urinary tract symptoms; J45.909 Unspecified asthma, uncomplicated; I87.2 Venous insufficiency (chronic) (peripheral); E11.9 Type 2 diabetes mellitus without complications; E78.2 Mixed hyperlipidemia

== ENCOUNTER → 2022-05-04 | Outpatient (CLI) | payer MEDICARE ==
[2022-05-04 10:37] LABS: BASO # 0.01 K/mm3 (0.02-0.10); EOS # 0.16 K/mm3 (0.04-0.40); EOS % 1.9 % (0.0-4.0); HEMATOCRIT 45.1 % (42.0-52.0); HEMOGLOBIN 14.3 g/dL (13.5-18.0); LYMPH# 1.91 K/mm3 (1.50-4.00); MEAN CELL VOLUME 80 fl (78-100); MEAN CORPUSCULAR HEMOGLOBIN 25 pg (27-31); MEAN CORPUSCULAR HGB CONC 32 g/dL (33-37); MEAN PLATELET VOLUME 10.3 fl (7.4-10.4); MONO # 0.82 K/mm3 (0.20-0.80); NEU # 5.65 K/mm3 (1.40-6.50); PLATELET COUNT 238 K/mm3 (130-400); RED BLOOD COUNT 5.67 M/mm3 (4.20-5.60); WHITE BLOOD COUNT 8.6 K/mm3 (4.8-10.8)
[2022-05-04 10:41] LABS: ALBUMIN 4.5 g/dL (3.4-4.8); POTASSIUM 5.2 mmol/L (3.5-5.1)
[2022-05-04 10:43] LABS: CALCIUM 9.9 mg/dL (8.3-10.5)
[2022-05-04 10:44] LABS: TOTAL PROTEIN 7.3 g/dL (6.2-8.1)
[2022-05-04 10:46] LABS: TOTAL BILIRUBIN 0.3 mg/dL (0.2-1.2)
[2022-05-04 12:04] LABS: ERYTHROCYTE SEDIMENTATION RATE 2 mm/hr (0-20)
== END ==
LOC: LAB 10:17
PROVIDERS: Internal Medicine
DX: R04.2 Hemoptysis (principal); E11.9 Type 2 diabetes mellitus without complications; N40.0 Benign prostatic hyperplasia without lower urinary tract symptoms; I48.91 Unspecified atrial fibrillation; E78.2 Mixed hyperlipidemia; J44.1 Chronic obstructive pulmonary disease with (acute) exacerbation; J45.41 Moderate persistent asthma with (acute) exacerbation; G47.30 Sleep apnea, unspecified; K44.9 Diaphragmatic hernia without obstruction or gangrene; J20.9 Acute bronchitis, unspecified; K29.50 Unspecified chronic gastritis without bleeding

== ENCOUNTER → 2023-04-16 | Outpatient (CLI) | payer MEDICARE ==
[~2023-04-16] MED LIST changes: +Iohexol 350 - 100 ML VIAL IV ONE
== END ==
LOC: RAD 10:14
DX: R06.00 Dyspnea, unspecified (principal)
CPT/HCPCS: Q9967

== ENCOUNTER → 2023-05-13 | Outpatient (CLI) | payer MEDICARE ==
[~2023-05-13] MED LIST changes: +CYCLOBENZAPRINE10 M1 PO; -Iohexol 350 - 100 ML VIAL IV ONE; +LIDODERM1 EACH TP; +VOLTAREN ARTHRI20 GM TP
== END ==
LOC: LAB 14:07
DX: I48.91 Unspecified atrial fibrillation (principal); E11.9 Type 2 diabetes mellitus without complications; I10 Essential (primary) hypertension; E78.2 Mixed hyperlipidemia; R06.00 Dyspnea, unspecified

== ENCOUNTER → 2023-07-30 | Outpatient (CLI) | payer MEDICARE | LOC: LAB 08:00 | DX: R53.83 Other fatigue (principal) ==

== ENCOUNTER → 2024-04-20 | Outpatient (CLI) | payer MEDICARE ==
[2024-04-20 10:03] LABS: URINE WBC 0 /hpf (0-3)
[2024-04-20 10:11] LABS: BASO # 0.01 K/mm3 (0.02-0.10); EOS # 0.17 K/mm3 (0.04-0.40); EOS % 1.9 % (0.0-4.0); HEMATOCRIT 48.7 % (42.0-52.0); HEMOGLOBIN 15.8 g/dL (13.5-18.0); LYMPH# 2.89 K/mm3 (1.50-4.00); MEAN CELL VOLUME 84 fl (78-100); MEAN CORPUSCULAR HEMOGLOBIN 27 pg (27-31); MEAN CORPUSCULAR HGB CONC 32 g/dL (33-37); MEAN PLATELET VOLUME 9.8 fl (7.4-10.4); MONO # 0.79 K/mm3 (0.20-0.80); NEU # 4.84 K/mm3 (1.40-6.50); PLATELET COUNT 233 K/mm3 (130-400); RED BLOOD COUNT 5.78 M/mm3 (4.20-5.60); RED CELL DISTRIBUTION WIDTH 13.6 % (11.5-14.5); WHITE BLOOD COUNT 8.7 K/mm3 (4.8-10.8)
[2024-04-20 10:23] LABS: ALBUMIN 4.7 g/dL (3.4-4.8)
[2024-04-20 10:24] LABS: CALCIUM 9.9 mg/dL (8.3-10.5)
[2024-04-20 10:27] LABS: TOTAL BILIRUBIN 0.3 mg/dL (0.2-1.2)
[2024-04-20 10:32] LABS: MAGNESIUM 1.76 mg/dL (1.60-2.60)
[2024-04-20 10:33] LABS: PH-URINE 5.5 (5.0 - 8.0); URINE APPEARANCE CLEAR (CLEAR); URINE BILIRUBIN NEGATIVE (NEGATIVE); URINE BLOOD NEGATIVE (NEGATIVE); URINE COLOR YELLOW (YELLOW); URINE GLUCOSE NEGATIVE (NEGATIVE); URINE KETONE NEGATIVE (NEGATIVE); URINE LEUKOCYTE ESTERASE NEGATIVE (NEGATIVE); URINE NITRATE NEGATIVE (NEGATIVE); URINE PROTEIN(semi-quant) NEGATIVE (NEGATIVE)
[2024-04-20 23:32] LABS: CREATININE OTHER SOURCE 18 mg/dL (47-110)
== END ==
LOC: LAB 09:46
PROVIDERS: Internal Medicine
DX: Z12.5 Encounter for screening for malignant neoplasm of prostate (principal); M19.072 Primary osteoarthritis, left ankle and foot; E11.9 Type 2 diabetes mellitus without complications; E78.2 Mixed hyperlipidemia; I10 Essential (primary) hypertension; K90.9 Intestinal malabsorption, unspecified